=== PATIENT | male | born 1995 | race African-American/Black ===

== ENCOUNTER 2021-01-07 14:07 | Emergency (ER) | payer OTHER ==
[~2021-01-07] VITALS: Ht 170.2 cm; Wt 90.7 kg
[2021-01-07] MEDS ORDERED: NORCO 10-325 T1 EACH PO (15:24)
[2021-01-07] MEDS ORDERED: SSD CREAM 1% 5050 GM TOP (15:24)
[2021-01-07 15:40] VITALS: BP 127/74
== END 2021-01-07 15:44 | disposition home or self-care (01) ==
LOC: ER 14:07
DX: T22.10XA Burn of first degree of shoulder and upper limb, except wrist and hand, unspecified site, initial encounter (principal); T21.11XA Burn of first degree of chest wall, initial encounter; T31.0 Burns involving less than 10% of body surface; F17.210 Nicotine dependence, cigarettes, uncomplicated; X11.8XXA Contact with other hot tap-water, initial encounter; Y93.89 Activity, other specified; Y92.89 Other specified places as the place of occurrence of the external cause; Y99.8 Other external cause status